=== PATIENT | male | born 1985 | race African-American/Black ===

== ENCOUNTER 2020-07-31 22:45 | Emergency (ER) | payer SELFPAY ==
[~2020-07-31] VITALS: Ht 162.6 cm; Wt 147.4 kg
[2020-07-31] MEDS ORDERED: KETOROLAC TROMETHAMINE 30 MG/ML VIAL IM STA (23:10)
[2020-07-31] MEDS ORDERED: CYCLOBENZAPRINE5 MG PO (23:14)
[2020-07-31] MEDS ORDERED: NAPROSYN500 MG PO (23:14)
[2020-07-31] MEDS ORDERED: DEXAMETHASONE SOD PHOS 10 MG/1 ML VIAL IM ONE (23:15)
[2020-07-31] MEDS ORDERED: CYCLOBENZAPRINE HCL 10 MG TAB PO ONE (23:15)
[2020-07-31] MEDS ORDERED: HYDROCODONE/APAP 5MG-325MG TAB PO ONE (23:15)
[2020-07-31] MEDS ORDERED: KETOROLAC TROMETHAMINE 30 MG/ML VIAL ONE (23:32)
[2020-07-31] MEDS ORDERED: DEXAMETHASONE SOD PHOS INJ 4 MG/ML VIAL ONE (23:32)
[2020-07-31] MEDS ORDERED: CYCLOBENZAPRINE HCL 10 MG TAB ONE (23:32)
[2020-07-31] MEDS ORDERED: HYDROCODONE/APAP 5MG-325MG TAB ONE (23:33)
[2020-07-31 23:54] VITALS: BP 120/106
== END 2020-07-31 23:54 | disposition home or self-care (01) ==
LOC: FSED 23:00
DX: M25.552 Pain in left hip (principal); M62.838 Other muscle spasm; M54.10 Radiculopathy, site unspecified
CPT/HCPCS: 96372; 99283; J1100 ×2; J1885

== ENCOUNTER 2020-09-02 16:42 | Emergency (ER) | payer SELFPAY ==
[~2020-09-02] VITALS: Ht 162.6 cm; Wt 160.8 kg
[~2020-09-02 16:42] MED LIST: CYCLOBENZAPRINE5 MG PO; NAPROSYN500 MG PO
[2020-09-02] MEDS ORDERED: KETOROLAC TROMETHAMINE 30 MG/ML VIAL IV NR (17:06)
[2020-09-02] MEDS ORDERED: LISINOPRIL10 MG PO (17:39)
[2020-09-02] MEDS ORDERED: KETOROLAC TROMETHAMINE 30 MG/ML VIAL ONE (18:03)
[2020-09-02] MEDS ORDERED: NAPROSYN500 MG PO (18:20)
[2020-09-02] MEDS ORDERED: CYCLOBENZAPRINE5 MG PO (18:20)
[2020-09-02 18:36] VITALS: BP 167/90
== END 2020-09-02 18:33 | disposition home or self-care (01) ==
LOC: FSED 17:07
DX: R10.9 Unspecified abdominal pain (principal); M62.838 Other muscle spasm; I10 Essential (primary) hypertension
CPT/HCPCS: 74176; 80048; 80076; 81003; 85025; 99284; J1885

== ENCOUNTER 2021-07-29 12:49 | Emergency (ER) | payer SELFPAY ==
[~2021-07-29] VITALS: Ht 162.6 cm; Wt 156.5 kg
[~2021-07-29 12:49] MED LIST changes: +LISINOPRIL10 MG PO
[2021-07-29] MEDS ORDERED: MIRALAX17 GM PO (13:53)
[2021-07-29] MEDS ORDERED: ADULT GLYCERIN1 EACH PR (13:53)
== END 2021-07-29 14:33 | disposition home or self-care (01) ==
LOC: FSED 12:54
DX: K59.00 Constipation, unspecified (principal); K64.9 Unspecified hemorrhoids; I10 Essential (primary) hypertension
CPT/HCPCS: 99282

== ENCOUNTER 2021-09-09 12:01 | Emergency (ER) | payer OTHER ==
[~2021-09-09] VITALS: Ht 162.6 cm; Wt 156.5 kg
[~2021-09-09 12:01] MED LIST changes: +ADULT GLYCERIN1 EACH PR; +MIRALAX17 GM PO
[2021-09-09] MEDS ORDERED: AZITHROMYCIN250 MG PO (14:18)
[2021-09-09 14:35] VITALS: BP 143/92
== END 2021-09-09 14:44 | disposition home or self-care (01) ==
LOC: FSED 13:02
DX: R05.9 Cough, unspecified (principal); J20.9 Acute bronchitis, unspecified; B34.9 Viral infection, unspecified; I10 Essential (primary) hypertension
CPT/HCPCS: 83518; 87400; 99282